=== PATIENT | male | born 1975 | race Caucasian/White ===

== ENCOUNTER 2016-12-23 08:49 | Emergency (ER) | payer MEDICAID ==
[~2016-12-23] VITALS: Ht 170.2 cm; Wt 94.1 kg
[2016-12-23] MEDS ORDERED: PERTUSS(ACELL),DIPH,TET VAC/PF 0.5 ML VIAL IM ONE (09:15)
[2016-12-23] MEDS ORDERED: LIDOCAINE HCL 1% 10 ML VIAL INJ ONE (09:15)
[2016-12-23 10:25] VITALS: BP 142/92
[2016-12-23] MEDS ORDERED: BACITRACIN 0.9 GM PACKET OINTMENT TP ONE (10:45)
== END 2016-12-23 10:45 | disposition home or self-care (01) ==
LOC: EMS 08:50
DX: S81.811A Laceration without foreign body, right lower leg, initial encounter (principal); W45.8XXA Other foreign body or object entering through skin, initial encounter; Y93.89 Activity, other specified; Y92.89 Other specified places as the place of occurrence of the external cause; Y99.8 Other external cause status
CPT/HCPCS: 12002; 90471; 90715; 99283; J3490

== ENCOUNTER 2017-01-02 12:49 | Emergency (ER) | payer MEDICAID ==
[~2017-01-02] VITALS: Ht 177.8 cm; Wt 95.5 kg
[2017-01-02 13:39] VITALS: BP 133/81
== END 2017-01-02 14:12 | disposition home or self-care (01) ==
LOC: EMS 12:50
DX: S81.811D Laceration without foreign body, right lower leg, subsequent encounter (principal)
CPT/HCPCS: 99281